=== PATIENT | male | born 1980 | race Native Hawaiian/Other Pacific Islander ===

== ENCOUNTER 2021-10-10 10:30 | Emergency (ER) | payer OTHER ==
[~2021-10-10] VITALS: Ht 172.7 cm; Wt 104.3 kg
--- NOTE | 2021-10-10 10:46 | ED General ---
General Stated Complaint: ELEV GLUCOSE Source of Information: Patient Exam Limitations: No Limitations History of Present Illness Date Seen by Provider: Oct 10, 2021 Time Seen by Provider: 10:32 Initial Comments 41-year-old male with past medical history of diabetes and hypertension coming in with custodial personnel from [facility] as he has an elevated blood sugar. He says he was diagnosed with diabetes many years ago, but has been borderline since then and they took him off medications many years ago. He says he was not feeling right so he had the nurse in the gel take his blood sugar and it was in the 500s. They given Levemir last night as well as Metformin but it continues to be elevated so they referred him here. He says he has been urinating a lot but is denying any other significant issues including no chest pain, shortness of breath, abdominal pain, nausea, vomiting, diarrhea, fever, chills, weakness, numbness, or any other concerns. He is unsure of the dose of the Levemir they gave him, he says he has not been on insulin for years. He says the physician is planning to see him in custodial tomorrow. Allergies and Home Medications Allergies Coded Allergies: haloperidol (Verified Allergy, Mild, 10/10/21) Patient Home Medication List Home Medication List Reviewed: Yes Review of Systems Review of Systems Constitutional: No chills, No fever EENTM: No blurred vision Respiratory: No cough Cardiovascular: No chest pain Gastrointestinal: No abdominal pain Genitourinary: frequency Musculoskeletal: no symptoms reported Skin: no symptoms reported Psychiatric/Neurological: No Symptoms Reported Hematologic/Lymphatic: No Symptoms Reported Immunological/Allergic: no symptoms reported All Other Systems Reviewed Negative Unless Noted: Yes Past Mwcnbde-Gdgjne-Gfidpz Hx Patient Social History Tobacco Use?: Yes Substance use?: No Alcohol Use?: Yes Past Medical History Surgeries: Yes (nose surgery) Physical Exam Vital Signs Vital Signs - First Documented 10/10/21 10:35 Temp 36.4 Pulse 85 Resp 18 B/P (MAP) 122/75 (91) O2 Delivery Room Air Capillary Refill : Height, Weight, BMI Height: '" Weight: lbs. oz. kg; BMI Method: General Appearance: No Apparent Distress, WD/WN Eyes: Bilateral Eye Normal Inspection HEENT: PERRL/EOMI, Normal ENT Inspection, Pharynx Normal Neck: Full Range of Motion, Normal Inspection, Non Tender, Supple Respiratory: Chest Non Tender, Lungs Clear, Normal Breath Sounds, No Accessory Muscle Use, No Respiratory Distress Cardiovascular: Regular Rate, Rhythm, No Edema, Normal Peripheral Pulses Gastrointestinal: Normal Bowel Sounds, Non Tender, Soft; No Distended, No Guarding Back: Normal Inspection, No CVA Tenderness, No Vertebral Tenderness Extremity: Normal Capillary Refill, Normal Inspection, Normal Range of Motion, Non Tender, No Calf Tenderness Neurologic/Psychiatric: Alert, No Motor/Sensory Deficits, Normal Mood/Affect Skin: Normal Color, Warm/Dry Lymphatic: No Adenopathy Progress/Results/Core Measures Suspected Sepsis SIRS Temperature: Pulse: Respiratory Rate: Laboratory Tests 10/10/21 10:57: White Blood Count 7.2 Blood Pressure / Mean: Laboratory Tests 10/10/21 10:57: Creatinine 0.86, Platelet Count 305 Results/Orders Lab Results Laboratory Tests Test 10/10/21 10:38 10/10/21 10:54 10/10/21 10:57 10/10/21 11:41 Range/Units Urine Color YELLOW Urine Clarity CLEAR Urine pH 6.0 5-9 Urine Specific [place] 1.010 L 1.016-1.022 Urine Protein NEGATIVE NEGATIVE Urine Glucose (UA) 3+ H NEGATIVE Urine Ketones 2+ H NEGATIVE Urine Nitrite NEGATIVE NEGATIVE Urine Bilirubin NEGATIVE NEGATIVE Urine Urobilinogen 0.2 < = 1.0 MG/DL Urine Leukocyte Esterase NEGATIVE NEGATIVE Urine RBC (Auto) NEGATIVE NEGATIVE Urine RBC RARE /HPF Urine WBC 0-2 /HPF Urine Squamous Epithelial Cells RARE /HPF Urine Crystals NONE /LPF Urine Bacteria NEGATIVE /HPF Urine Casts NONE /LPF Urine Mucus NEGATIVE /LPF Urine Culture Indicated NO Glucometer 452 *H 223 H 70-110 MG/DL White Blood Count 7.2 4.3-11.0 10^3/uL Red Blood Count 5.25 4.30-5.52 10^6/uL Hemoglobin 14.9 13.3-17.7 g/dL Hematocrit 42 40-54 % Mean Corpuscular Volume 81 80-99 fL Mean Corpuscular Hemoglobin 28 25-34 pg Mean Corpuscular Hemoglobin Concent 35 32-36 g/dL Red Cell Distribution Width 12.4 10.0-14.5 % Platelet Count 305 130-400 10^3/uL Mean Platelet Volume 9.8 9.0-12.2 fL Immature Granulocyte % (Auto) 0 % Neutrophils (%) (Auto) 73 42-75 % Lymphocytes (%) (Auto) 18 12-44 % Monocytes (%) (Auto) 8 0-12 % Eosinophils (%) (Auto) 0 0-10 % Basophils (%) (Auto) 0 0-10 % Neutrophils # (Auto) 5.3 1.8-7.8 10^3/uL Lymphocytes # (Auto) 1.3 1.0-4.0 10^3/uL Monocytes # (Auto) 0.5 0.0-1.0 10^3/uL Eosinophils # (Auto) 0.0 0.0-0.3 10^3/uL Basophils # (Auto) 0.0 0.0-0.1 10^3/uL Immature Granulocyte # (Auto) 0.0 0.0-0.1 10^3/uL Blood Gas Puncture Site VENOUS Blood Gas Patient Temperature NA Arterial Blood pH 7.35 L 7.37-7.43 Arterial Blood Partial Pressure CO2 47 H 35-45 MMHG Arterial Blood Partial Pressure O2 39 *L 79-93 MMHG Arterial Blood HCO3 26 23-27 MMOL/L Arterial Blood Total CO2 27.3 21.0-31.0 MMOL/L Arterial Blood Oxygen Saturation 70 L 94-100 % Arterial Blood Base Excess -0.1 -2.5-2.5 MMOL/L Otoniel Test NA Blood Gas Ventilator Setting NO Blood Gas Inspired Oxygen NA Sodium Level 131 L 135-145 MMOL/L Potassium Level 4.0 3.6-5.0 MMOL/L Chloride Level 93 L 98-107 MMOL/L Carbon Dioxide Level 22 21-32 MMOL/L Anion Gap 16 H 5-14 MMOL/L Blood Urea Nitrogen 12 7-18 MG/DL Creatinine 0.86 0.60-1.30 MG/DL Estimat Glomerular Filtration Rate 110 BUN/Creatinine Ratio 14 Glucose Level 444 *H 70-105 MG/DL Calcium Level 9.5 8.5-10.1 MG/DL My Orders Orders - NIRU DE LA ROSA MD Arterial Blood Gas (10/10/21 10:35) Basic Metabolic Panel (10/10/21 10:35) Cbc With Automated Diff (10/10/21 10:35) Ua Culture If Indicated (10/10/21 10:35) Accucheck Stat ONCE (10/10/21 10:35) Lactated Ringers (Lr 1000 Ml Iv Solution (10/10/21 11:00) Insulin (Regular) Human (Novolin R (Per (10/10/21 11:00) Medications Given in ED Current Medications Medications Dose Ordered Sig/Isreal Route Start Time Stop Time Status Last Admin Dose Admin Insulin Human Regular 10 unit ONCE ONCE IV 10/10/21 11:00 10/10/21 11:01 DC 10/10/21 11:09 10 UNIT Vital Signs/I&O 10/10/21 10:35 Temp 36.4 Pulse 85 Resp 18 B/P (MAP) 122/75 (91) O2 Delivery Room Air Capillary Refill : Progress Note : Progress Note 41-year-old male with above history coming in due to elevated glucose. ABCs were intact and vitals were stable on presentation. Physical exam reassuring with no focal abnormalities. Glucose here in the 400s. An IV was placed and he was given a bolus of IV fluids as well as 10 units of regular insulin. Anion gap is 16 and he does have some ketones in his urine, but pH is essentially normal so he likely is heather-DKA but not really in full DKA at this point. Repeat glucose in the 200s. He did get long-acting insulin last night which is reassuring. Vitals have remained stable. I believe he is stable for discharge with follow-up with the custodial doctor tomorrow, especially given he will have frequent reassessments with blood sugar checks by the nurse in custodial today. He was sent there with strict return precautions. Departure Impression Primary Impression: Hyperglycemia Disposition: 21 DIS/[address]/[place] Condition: Stable Departure-Patient Inst. Decision time for Depature: 11:43 Referrals: NO,LOCAL PHYSICIAN (PCP) Primary Care Physician Patient Instructions: High Blood Sugar, Adult ED Add. Discharge Instructions: You were sent to the emergency department because your glucose was high. Your other labs looked good. When you got here your glucose was in the 400s. We gave you IV fluids and 10 units of regular insulin bolus. Your glucose went down to the 200s which is an improvement. I recommend you eat a high protein source and something with low amount of carbs to keep your glucose and control especially while in custodial. I would have the custodial nurse check your sugar a couple more times today to be sure it is trending in the right direction. Follow-up with [facility] as an outpatient to get restarted on diabetes medications. NIRU DE LA ROSA MD Oct 10, 2021 10:46
[2021-10-10 10:53] LABS: BILIRUBIN,URINE NEGATIVE (NEGATIVE); CLARITY,URINE CLEAR; COLOR,URINE YELLOW; GLUCOSE, URINE (UA) 3+ (NEGATIVE); KETONES,URINE 2+ (NEGATIVE); LEUKOCYTE ESTERASE ,URINE NEGATIVE (NEGATIVE); NITRITE,URINE NEGATIVE (NEGATIVE); PROTEIN,URINE NEGATIVE (NEGATIVE)
[2021-10-10] MEDS ORDERED: LACTATED RINGERS 1,000 ML IV SCH (11:00)
[2021-10-10] MEDS ORDERED: inSUlin (REGULAR) HUMAN 1 UNIT/0.01 ML (CHARGE PER UNIT) IV ONE (11:00)
[2021-10-10 11:02] LABS: BASOPHILS % (AUTO) 0 % (0-10); EOSINOPHILS % (AUTO) 0 % (0-10); HEMATOCRIT 42 % (40-54); HEMOGLOBIN 14.9 g/dL (13.3-17.7); LYMPHOCYTES # (AUTO) 1.3 10^3/uL (1.0-4.0); LYMPHOCYTES % (AUTO) 18 % (12-44); MEAN CORPUSCULAR HEMOGLOBIN 28 pg (25-34); MEAN CORPUSCULAR HGB CONC 35 g/dL (32-36); MEAN CORPUSCULAR VOLUME 81 fL (80-99); MEAN PLATELET VOLUME 9.8 fL (9.0-12.2); MONOCYTES # (AUTO) 0.5 10^3/uL (0.0-1.0); MONOCYTES % (AUTO) 8 % (0-12); NEUTROPHILS # (AUTO) 5.3 10^3/uL (1.8-7.8); NEUTROPHILS % (AUTO) 73 % (42-75); PLATELET COUNT 305 10^3/uL (130-400); WHITE BLOOD COUNT 7.2 10^3/uL (4.3-11.0)
[2021-10-10 11:08] LABS: BACTERIA,URINE NEGATIVE /HPF; RBC,URINE RARE /HPF; SQUAMOUS EPITHELIAL CELL,UR RARE /HPF; WBC,URINE 0-2 /HPF
[2021-10-10 11:10] LABS: ABG BASE EXCESS -0.1 MMOL/L (-2.5-2.5); ABG PCO2 47 MMHG (35-45); ABG PH 7.35 (7.37-7.43); ABG PO2 39 MMHG (79-93); ABG TCO2 27.3 MMOL/L (21.0-31.0)
[2021-10-10 11:11] LABS: ABG OXYGEN SATURATION 70 % (94-100); VENTILATOR NO
[2021-10-10 11:34] LABS: CALCIUM 9.5 MG/DL (8.5-10.1); CREATININE SERUM 0.86 MG/DL (0.60-1.30)
[2021-10-10 11:49] VITALS: BP 126/71
== END 2021-10-10 11:49 ==
LOC: ER FS 10:33
DX: E11.65 Type 2 diabetes mellitus with hyperglycemia (principal); Z72.0 Tobacco use; Z79.84 Long term (current) use of oral hypoglycemic drugs
CPT/HCPCS: 36415; 80048; 81000; 82805; 82947; 85025

== ENCOUNTER 2022-11-18 12:01 | Emergency (ER) | payer SELFPAY ==
[~2022-11-18] VITALS: Ht 172 cm; Wt 92.5 kg
[2022-11-18] MEDS ORDERED: NS IV 1000 ML 1,000 ML IV SCH ×3 (12:30→13:45)
[2022-11-18] MEDS ORDERED: inSUlin (REGULAR) HUMAN 1 UNIT/0.01 ML (CHARGE PER UNIT) IV ONE (12:30)
[2022-11-18 12:35] LABS: BILIRUBIN,URINE NEGATIVE (NEGATIVE); CLARITY,URINE CLEAR; COLOR,URINE YELLOW; GLUCOSE, URINE (UA) 2+ (NEGATIVE); KETONES,URINE 3+ (NEGATIVE); LEUKOCYTE ESTERASE ,URINE NEGATIVE (NEGATIVE); NITRITE,URINE NEGATIVE (NEGATIVE); PH,URINE 5.5 (5-9); PROTEIN,URINE 1+ (NEGATIVE)
[2022-11-18 12:35] LABS: BASOPHILS % (AUTO) 0 % (0-10); EOSINOPHILS % (AUTO) 0 % (0-10); HEMATOCRIT 50 % (40-54); HEMOGLOBIN 17.5 g/dL (13.3-17.7); LYMPHOCYTES # (AUTO) 2.3 10^3/uL (1.0-4.0); LYMPHOCYTES % (AUTO) 21 % (12-44); MEAN CORPUSCULAR HEMOGLOBIN 28 pg (25-34); MEAN CORPUSCULAR HGB CONC 35 g/dL (32-36); MEAN CORPUSCULAR VOLUME 82 fL (80-99); MEAN PLATELET VOLUME 9.2 fL (9.0-12.2); MONOCYTES # (AUTO) 0.6 10^3/uL (0.0-1.0); MONOCYTES % (AUTO) 6 % (0-12); NEUTROPHILS # (AUTO) 7.9 10^3/uL (1.8-7.8); NEUTROPHILS % (AUTO) 72 % (42-75); PLATELET COUNT 400 10^3/uL (130-400); WHITE BLOOD COUNT 10.9 10^3/uL (4.3-11.0)
[2022-11-18 12:37] LABS: BACTERIA,URINE TRACE /HPF; WBC,URINE 0-2 /HPF
[2022-11-18 12:46] LABS: AMPHETAMINE SCREEN, URINE NEGATIVE (NEGATIVE); BARBITURATE SCREEN URINE NEGATIVE (NEGATIVE); BENZODIAZEPINES SCREEN URINE NEGATIVE (NEGATIVE); CANNABINOID SCREEN, URINE NEGATIVE (NEGATIVE); COCAINE SCREEN URINE POSITIVE (NEGATIVE); METHADONE STAT NEGATIVE (NEGATIVE); OPIATE SCREEN URINE NEGATIVE (NEGATIVE); OXYCODONE STAT NEGATIVE (NEGATIVE); PROPOXYPHENE STAT NEGATIVE (NEGATIVE); TRICYCLIC ANTIDEPRESSANTS SCRE NEGATIVE (NEGATIVE)
[2022-11-18 12:52] LABS: ALANINE AMINOTRANSFERASE 12 U/L (0-55); ALBUMIN 4.8 GM/DL (3.2-4.5); ALKALINE PHOSPHATASE 133 U/L (40-136); BILIRUBIN,TOTAL 0.9 MG/DL (0.1-1.0); BUN/CREATININE RATIO 14; CALCIUM 10.3 MG/DL (8.5-10.1); CARBON DIOXIDE 23 MMOL/L (21-32); CHLORIDE 95 MMOL/L (98-107); CREATININE SERUM 0.99 MG/DL (0.60-1.30); GFR ESTIMATED 96; GLUCOSE 386 MG/DL (70-105); LIPASE 28 U/L (8-78); POTASSIUM 4.3 MMOL/L (3.6-5.0); SODIUM 136 MMOL/L (135-145); TOTAL PROTEIN 8.4 GM/DL (6.4-8.2)
--- NOTE | 2022-11-18 12:56 | ED General ---
General Chief Complaint: General Problems/Pain Stated Complaint: BLOOD SUGAR Nursing Triage Note: Patient ambulatory to room 6 with complaints of dry mouth, a lot of urinating, weakness and nausea. Patient states he threw up 1x 5 days ago. Symptoms started 5 days ago. Patient was seen at Walk In today who then sent him here. Source of Information: Patient, Family History of Present Illness Date Seen by Provider: Nov 18, 2022 Time Seen by Provider: 12:17 Initial Comments 42-year-old male patient with type 2 diabetes mellitus, PTSD, bipolar and schizophrenia sent from walk-in clinic because of elevation of blood sugar. Patient states for the last 5 days he does not feel good and feels dehydrated and having elevation of blood sugar and feeling thirsty and increasing urination. Patient states he had 1 episode of vomiting 5 days ago and had constipation but today had several episodes of firmed stool. Patient states he did not missed his metformin 1000 mg twice a day but does not check his blood sugar. Patient denies headache, myalgia, chest pain, shortness of breath, fever and chills, drinking alcohol or using drugs. Allergies and Home Medications Allergies Coded Allergies: haloperidol (Verified Allergy, Mild, 10/10/21) Patient Home Medication List Home Medication List Reviewed: Yes Review of Systems Review of Systems Constitutional: see HPI EENTM: see HPI; No blurred vision, No double vision, No throat pain Respiratory: see HPI; No short of breath, No stridor Cardiovascular: no symptoms reported; No edema, No palpitations, No syncope Gastrointestinal: see HPI; No diarrhea, No nausea Genitourinary: see HPI; No hematuria, No pain Musculoskeletal: no symptoms reported Skin: no symptoms reported Psychiatric/Neurological: See HPI; Denies Paresthesia, Denies Seizure, Denies Tingling Hematologic/Lymphatic: See HPI; Denies Anemia, Denies Blood Clots, Denies Other Immunological/Allergic: denies see HPI, denies transplant Past Axmwzxp-Zilkee-Bzxove Hx Past Medical History Surgeries: Yes (nose surgery) Physical Exam Vital Signs Vital Signs - First Documented 11/18/22 12:05 Temp 36.1 Pulse 87 Resp 18 B/P (MAP) 151/88 (109) Pulse Ox 98 O2 Delivery Room Air Capillary Refill : Less Than 3 Seconds Height, Weight, BMI Height: '" Weight: lbs. oz. kg; 31.00 BMI Method: General Appearance: Anxious, Mild Distress, Obese Eyes: Bilateral Eye Normal Inspection, Bilateral Eye PERRL HEENT: PERRL/EOMI, TMs Normal, Normal ENT Inspection, Pharynx Normal, Other (Dry oral mucosa) Neck: Full Range of Motion, Normal Inspection, Non Tender, Supple, Carotid Bruit Respiratory: Chest Non Tender, Lungs Clear, Normal Breath Sounds, No Accessory Muscle Use, No Respiratory Distress Cardiovascular: Regular Rate, Rhythm, No Edema, No Gallop, No JVD, No Murmur, Normal Peripheral Pulses Gastrointestinal: Normal Bowel Sounds, No Organomegaly, No Pulsatile Mass, Non Tender, Soft Back: Normal Inspection, No CVA Tenderness, No Vertebral Tenderness Extremity: Normal Capillary Refill, Normal Inspection, Normal Range of Motion, Non Tender, No Calf Tenderness, No Pedal Edema Neurologic/Psychiatric: Alert, Oriented x3, No Motor/Sensory Deficits, Normal Mood/Affect Skin: Normal Color Lymphatic: No Adenopathy Progress/Results/Core Measures Suspected Sepsis SIRS Temperature: Pulse: 87 Respiratory Rate: 18 Laboratory Tests 11/18/22 12:26: White Blood Count 10.9 Blood Pressure 151 /88 Mean: 109 Laboratory Tests 11/18/22 12:26: Creatinine 0.99, Platelet Count 400, Total Bilirubin 0.9 Results/Orders Lab Results Laboratory Tests Test 11/18/22 12:09 11/18/22 12:22 11/18/22 12:26 11/18/22 13:10 Range/Units Glucometer 374 H 70-110 MG/DL Urine Color YELLOW Urine Clarity CLEAR Urine pH 5.5 5-9 Urine Specific [place] >=1.030 1.016-1.022 Urine Protein 1+ H NEGATIVE Urine Glucose (UA) 2+ H NEGATIVE Urine Ketones 3+ H NEGATIVE Urine Nitrite NEGATIVE NEGATIVE Urine Bilirubin NEGATIVE NEGATIVE Urine Urobilinogen 0.2 < = 1.0 MG/DL Urine Leukocyte Esterase NEGATIVE NEGATIVE Urine RBC (Auto) NEGATIVE NEGATIVE Urine RBC NONE /HPF Urine WBC 0-2 /HPF Urine Squamous Epithelial Cells NONE /HPF Urine Crystals NONE /LPF Urine Bacteria TRACE /HPF Urine Casts PRESENT /LPF Urine Hyaline Casts 5-10 H /LPF Urine Granular Casts 2-5 H /LPF Urine Coarse Granular Casts RARE H /LPF Urine Mucus LARGE H /LPF Urine Culture Indicated NO Urine Opiates Screen NEGATIVE NEGATIVE Urine Oxycodone Screen NEGATIVE NEGATIVE Urine Methadone Screen NEGATIVE NEGATIVE Urine Propoxyphene Screen NEGATIVE NEGATIVE Urine Barbiturates Screen NEGATIVE NEGATIVE Ur Tricyclic Antidepressants Screen NEGATIVE NEGATIVE Urine Phencyclidine Screen NEGATIVE NEGATIVE Urine Amphetamines Screen NEGATIVE NEGATIVE Urine Methamphetamines Screen NEGATIVE NEGATIVE Urine Benzodiazepines Screen NEGATIVE NEGATIVE Urine Cocaine Screen POSITIVE H NEGATIVE Urine Cannabinoids Screen NEGATIVE NEGATIVE White Blood Count 10.9 4.3-11.0 10^3/uL Red Blood Count 6.16 H 4.30-5.52 10^6/uL Hemoglobin 17.5 13.3-17.7 g/dL Hematocrit 50 40-54 % Mean Corpuscular Volume 82 80-99 fL Mean Corpuscular Hemoglobin 28 25-34 pg Mean Corpuscular Hemoglobin Concent 35 32-36 g/dL Red Cell Distribution Width 12.1 10.0-14.5 % Platelet Count 400 130-400 10^3/uL Mean Platelet Volume 9.2 9.0-12.2 fL Immature Granulocyte % (Auto) 0 % Neutrophils (%) (Auto) 72 42-75 % Lymphocytes (%) (Auto) 21 12-44 % Monocytes (%) (Auto) 6 0-12 % Eosinophils (%) (Auto) 0 0-10 % Basophils (%) (Auto) 0 0-10 % Neutrophils # (Auto) 7.9 H 1.8-7.8 10^3/uL Lymphocytes # (Auto) 2.3 1.0-4.0 10^3/uL Monocytes # (Auto) 0.6 0.0-1.0 10^3/uL Eosinophils # (Auto) 0.0 0.0-0.3 10^3/uL Basophils # (Auto) 0.0 0.0-0.1 10^3/uL Immature Granulocyte # (Auto) 0.0 0.0-0.1 10^3/uL Sodium Level 136 135-145 MMOL/L Potassium Level 4.3 3.6-5.0 MMOL/L Chloride Level 95 L 98-107 MMOL/L Carbon Dioxide Level 23 21-32 MMOL/L Anion Gap 18 H 5-14 MMOL/L Blood Urea Nitrogen 14 7-18 MG/DL Creatinine 0.99 0.60-1.30 MG/DL Estimat Glomerular Filtration Rate 96 BUN/Creatinine Ratio 14 Glucose Level 386 H 70-105 MG/DL Calcium Level 10.3 H 8.5-10.1 MG/DL Corrected Calcium 8.5-10.1 MG/DL Total Bilirubin 0.9 0.1-1.0 MG/DL Aspartate Amino Transf (AST/SGOT) 6 5-34 U/L Alanine Aminotransferase (ALT/SGPT) 12 0-55 U/L Alkaline Phosphatase 133 40-136 U/L Total Protein 8.4 H 6.4-8.2 GM/DL Albumin 4.8 H 3.2-4.5 GM/DL Lipase 28 8-78 U/L Blood Gas Puncture Site LEFT RAD Blood Gas Patient Temperature 36.1 Arterial Blood pH 7.30 *L 7.37-7.43 Arterial Blood Partial Pressure CO2 55 H 35-45 MMHG Arterial Blood Partial Pressure O2 19 *L 79-93 MMHG Arterial Blood HCO3 27 23-27 MMOL/L Arterial Blood Total CO2 28.8 21.0-31.0 MMOL/L Arterial Blood Oxygen Saturation 24 L 94-100 % Arterial Blood Base Excess -0.2 -2.5-2.5 MMOL/L Otoniel Test N/A Blood Gas Ventilator Setting NO Blood Gas Inspired Oxygen N/A Test 11/18/22 13:13 Range/Units Glucometer 295 H 70-110 MG/DL My Orders Orders - SHREYA FIORE MD Comprehensive Metabolic Panel (11/18/22 12:28) Lipase (11/18/22 12:28) Ua Culture If Indicated (11/18/22 12:28) Ed Iv/Invasive Line Start (11/18/22 12:28) Cbc With Automated Diff (11/18/22 12:28) Drug Screen Stat (Urine) (11/18/22 12:28) Ns Iv 1000 Ml (Sodium Chloride 0.9%) (11/18/22 12:30) Insulin (Regular) Human (Novolin R (Per (11/18/22 12:30) Arterial Blood Gas (11/18/22 12:58) Arterial Blood Gas (11/18/22 13:15) Ns Iv 1000 Ml (Sodium Chloride 0.9%) (11/18/22 13:30) Medications Given in ED Current Medications Medications Dose Ordered Sig/Isreal Route Start Time Stop Time Status Last Admin Dose Admin Insulin Human Regular 10 unit ONCE ONCE IV 11/18/22 12:30 11/18/22 12:32 DC 11/18/22 12:39 10 UNIT Vital Signs/I&O 11/18/22 12:05 Temp 36.1 Pulse 87 Resp 18 B/P (MAP) 151/88 (109) Pulse Ox 98 O2 Delivery Room Air Capillary Refill : Less Than 3 Seconds Blood Pressure Mean: 109 Point of Care Testing Finger Stick Blood Glucose: 374 Progress Note : Progress Note 42-year-old patient with history of diabetes mellitus and complaining of dehydration and 1 episode of vomiting 5 days ago. Patient had blood sugar of 374 and at arrival to ER after seeing at walk-in clinic. Patient did not have tachycardia or hypotension or nausea and vomiting and treated with 2000 mL of normal saline and 10 units of IV regular insulin with improvement of his condition. Patient tolerated oral intake. Labs showed normal white count and elevation of hemoglobin because of dehydration. Patient had normal sodium and potassium with chloride of 95 and calcium of 10.5 that is most likely related to dehydration. Bicarb was 23. UA showed 3+ ketones and 2+ glucose without infe ction. UDS was positive for cocaine. ABG was performed and did not show low bicarb or CO2, PO2 was very low at that did not match with the clinical finding and O2 sat of 95% at room air. Blood sugar gradually decreased to 257 at the time of discharge. patient later on stated he did not take his metformin this morning and advised to take his metformin. Patient advised to follow-up with primary care physician for providing glucometer machine and strips. Patient advised not using illegal drugs and increase fluid intake and follow-up with diabetic diet. Patient informed about mild elevation of calcium, most likely related to dehydration, but needs to follow-up with primary care physician for repeat the calcium. Departure Impression Primary Impression: Uncontrolled diabetes mellitus with hyperglycemia Qualified Codes: E11.65 - Type 2 diabetes mellitus with hyperglycemia Additional Impressions: Dehydration Hypercalcemia Cocaine abuse Disposition: HOME, SELF-CARE Condition: Improved (ERASED) Departure-Patient Inst. Decision time for Depature: 14:19 Referrals: NO,LOCAL PHYSICIAN (PCP) Primary Care Physician Patient Instructions: Carb Counting for Adults With Diabetes, Dehydration, Adult ED, Diabetes and Diet, The ABCs of Diabetes Add. Discharge Instructions: Drink plenty of liquids Take home medication, do not miss your metformin Follow-up with your primary care physician in 2 or 3 days Return to ER as needed All discharge instructions reviewed with patient and/or family. Voiced understanding. Scripts Ondansetron (Ondansetron Odt) 4 Mg Tab.rapdis 4 MG PO TID PRN for NAUSEA-1ST LINE, #10 TAB Prov: SHREYA FIORE MD 11/18/22 SHREYA FIORE MD Nov 18, 2022 12:56
[2022-11-18 13:16] LABS: PATIENT TEMP 36.1; VENTILATOR NO
[2022-11-18 13:20] LABS: ABG BASE EXCESS -0.2 MMOL/L (-2.5-2.5); ABG OXYGEN SATURATION 24 % (94-100); ABG PCO2 55 MMHG (35-45); ABG TCO2 28.8 MMOL/L (21.0-31.0)
[2022-11-18 13:22] LABS: ABG PO2 19 MMHG (79-93)
[2022-11-18] MEDS ORDERED: ONDA4TAB11 PO (14:08)
[2022-11-18 14:40] VITALS: BP 138/76
== END 2022-11-18 14:40 | disposition home or self-care (01) ==
LOC: EDUNIT# 12:01 → ER FS 12:05 → ER 14:40
DX: E11.65 Type 2 diabetes mellitus with hyperglycemia (principal); E86.0 Dehydration; E83.52 Hypercalcemia; F14.10 Cocaine abuse, uncomplicated; R11.2 Nausea with vomiting, unspecified
CPT/HCPCS: 36415; 80053; 80306; 81000; 82805; 82947; 83690; 85025

== ENCOUNTER 2022-12-05 21:19 | Emergency (ER) | payer SELFPAY ==
[~2022-12-05 21:19] MED LIST: ONDA4TAB11 PO
--- NOTE | 2022-12-05 21:26 | ED General ---
General Stated Complaint: BLOOD SUGAR HIGH Source of Information: Patient History of Present Illness Date Seen by Provider: December 05, 2022 Time Seen by Provider: 21:24 Initial Comments 42-year-old male presenting with complaints of elevated blood sugar. He ran out of his metformin medications last week and was just seen on Sunday for getting started back on his medications. He reports that they restarted the metformin but they also started a new medicine for his diabetes. He does not remember the name of the medication. He had checked his sugar today and it was over 400. He was concerned because it was so high. He denies having nausea, vomiting, change in vision, chest pain, headache. He feels like he is having some numbness or tingling in his hands and feet. Timing/Duration: 4-5 Days Severity: Moderate Associated Systoms: No Chest Pain, No Cough, No Diaphoresis, No Fever/Chills, No Headaches, No Loss of Appetite, No Malaise, No Nausea/Vomiting, No Rash, No Seizure, No Shortness of Air, No Syncope, No Weakness Allergies and Home Medications Allergies Coded Allergies: haloperidol (Verified Allergy, Mild, 10/10/21) Patient Home Medication List Home Medication List Reviewed: Yes Ondansetron (Ondansetron Odt) 4 Mg Tab.rapdis, 4 MG PO TID PRN for NAUSEA-1ST LINE Prescribed by: Joanne gibson on 11/18/22 1408 Review of Systems Review of Systems Constitutional: No chills, No fever EENTM: no symptoms reported Respiratory: no symptoms reported Cardiovascular: no symptoms reported Gastrointestinal: no symptoms reported Genitourinary: no symptoms reported Musculoskeletal: no symptoms reported Skin: no symptoms reported Psychiatric/Neurological: No Symptoms Reported Hematologic/Lymphatic: No Symptoms Reported Past Utpbbty-Iufvjy-Aeifrh Hx Immunizations Up To Date First/Initial COVID19 Vaccinat: unknown Past Medical History Surgery/Hospitalization HX: Diabetes mellitus type 2 Surgeries: Yes (nose surgery) Physical Exam Vital Signs Vital Signs - First Documented 12/05/22 21:25 Temp 36.6 Pulse 73 Resp 18 B/P (MAP) 135/81 (99) Pulse Ox 97 O2 Delivery Room Air Capillary Refill : Height, Weight, BMI Height: '" Weight: lbs. oz. kg; 31.00 BMI Method: General Appearance: No Apparent Distress, WD/WN HEENT: PERRL/EOMI, Pharynx Normal Neck: Full Range of Motion, Normal Inspection, Non Tender, Supple Respiratory: Chest Non Tender, Lungs Clear, Normal Breath Sounds, No Accessory Muscle Use, No Respiratory Distress Cardiovascular: Regular Rate, Rhythm, Normal Peripheral Pulses Gastrointestinal: Normal Bowel Sounds, No Pulsatile Mass, Non Tender, Soft Extremity: Normal Capillary Refill, Normal Inspection, No Pedal Edema Neurologic/Psychiatric: Alert, Oriented x3, academic affairs vice president II-XII Norm as Tested Skin: Normal Color, Warm/Dry Progress/Results/Core Measures Suspected Sepsis SIRS Temperature: Pulse: Respiratory Rate: Laboratory Tests 12/05/22 21:30: White Blood Count 7.5 Blood Pressure / Mean: Laboratory Tests 12/05/22 21:30: Creatinine 0.83, Platelet Count 348, Total Bilirubin 0.3 Results/Orders Lab Results Laboratory Tests Test 12/05/22 21:25 12/05/22 21:28 12/05/22 21:30 12/05/22 22:30 Range/Units Urine Color YELLOW Urine Clarity CLEAR Urine pH 6.0 5-9 Urine Specific [place] 1.010 L 1.016-1.022 Urine Protein NEGATIVE NEGATIVE Urine Glucose (UA) 3+ H NEGATIVE Urine Ketones 3+ H NEGATIVE Urine Nitrite NEGATIVE NEGATIVE Urine Bilirubin NEGATIVE NEGATIVE Urine Urobilinogen 0.2 < = 1.0 MG/DL Urine Leukocyte Esterase NEGATIVE NEGATIVE Urine RBC (Auto) 1+ H NEGATIVE Urine RBC 2-5 H /HPF Urine WBC RARE /HPF Urine Squamous Epithelial Cells NONE /HPF Urine Crystals NONE /LPF Urine Bacteria NEGATIVE /HPF Urine Casts NONE /LPF Urine Mucus NEGATIVE /LPF Urine Culture Indicated NO Urine Opiates Screen NEGATIVE NEGATIVE Urine Oxycodone Screen NEGATIVE NEGATIVE Urine Methadone Screen NEGATIVE NEGATIVE Urine Propoxyphene Screen NEGATIVE NEGATIVE Urine Barbiturates Screen NEGATIVE NEGATIVE Ur Tricyclic Antidepressants Screen NEGATIVE NEGATIVE Urine Phencyclidine Screen NEGATIVE NEGATIVE Urine Amphetamines Screen NEGATIVE NEGATIVE Urine Methamphetamines Screen NEGATIVE NEGATIVE Urine Benzodiazepines Screen NEGATIVE NEGATIVE Urine Cocaine Screen NEGATIVE NEGATIVE Urine Cannabinoids Screen NEGATIVE NEGATIVE Glucometer 407 *H 222 H 70-110 MG/DL White Blood Count 7.5 4.3-11.0 10^3/uL Red Blood Count 5.18 4.30-5.52 10^6/uL Hemoglobin 14.7 13.3-17.7 g/dL Hematocrit 43 40-54 % Mean Corpuscular Volume 83 80-99 fL Mean Corpuscular Hemoglobin 28 25-34 pg Mean Corpuscular Hemoglobin Concent 34 32-36 g/dL Red Cell Distribution Width 12.3 10.0-14.5 % Platelet Count 348 130-400 10^3/uL Mean Platelet Volume 9.8 9.0-12.2 fL Immature Granulocyte % (Auto) 0 % Neutrophils (%) (Auto) 60 42-75 % Lymphocytes (%) (Auto) 33 12-44 % Monocytes (%) (Auto) 6 0-12 % Eosinophils (%) (Auto) 1 0-10 % Basophils (%) (Auto) 0 0-10 % Neutrophils # (Auto) 4.5 1.8-7.8 10^3/uL Lymphocytes # (Auto) 2.5 1.0-4.0 10^3/uL Monocytes # (Auto) 0.5 0.0-1.0 10^3/uL Eosinophils # (Auto) 0.1 0.0-0.3 10^3/uL Basophils # (Auto) 0.0 0.0-0.1 10^3/uL Immature Granulocyte # (Auto) 0.0 0.0-0.1 10^3/uL Venous Blood pH 7.38 7.31-7.41 Venous Blood Partial Pressure CO2 40 40-52 MMHG Venous Blood HCO3 24 22-28 MMOL/L Sodium Level 130 L 135-145 MMOL/L Potassium Level 4.5 3.6-5.0 MMOL/L Chloride Level 96 L 98-107 MMOL/L Carbon Dioxide Level 20 L 21-32 MMOL/L Anion Gap 14 5-14 MMOL/L Blood Urea Nitrogen 15 7-18 MG/DL Creatinine 0.83 0.60-1.30 MG/DL Estimat Glomerular Filtration Rate 111 BUN/Creatinine Ratio 18 Glucose Level 476 *H 70-105 MG/DL Calcium Level 9.4 8.5-10.1 MG/DL Corrected Calcium 9.4 8.5-10.1 MG/DL Total Bilirubin 0.3 0.1-1.0 MG/DL Aspartate Amino Transf (AST/SGOT) 11 5-34 U/L Alanine Aminotransferase (ALT/SGPT) 10 0-55 U/L Alkaline Phosphatase 135 40-136 U/L Total Protein 7.0 6.4-8.2 GM/DL Albumin 4.0 3.2-4.5 GM/DL Lipase 56 8-78 U/L Serum Alcohol < 10 <10 MG/DL Test 12/05/22 23:16 Range/Units Glucometer 195 H 70-110 MG/DL My Orders Orders - ARETHA COTTON MD Comprehensive Metabolic Panel (12/05/22 21:24) Lipase (12/05/22 21:24) Ua Culture If Indicated (12/05/22 21:24) Ed Iv/Invasive Line Start (12/05/22 21:24) Cbc With Automated Diff (12/05/22 21:24) Accucheck Stat ONCE (12/05/22 21:24) Drug Screen Stat (Urine) (12/05/22 21:24) Venous Blood Gas (12/05/22 21:24) Alcohol (12/05/22 21:24) Ns Iv 1000 Ml (Sodium Chloride 0.9%) (12/05/22 21:39) Insulin (Regular) Human (Novolin R (Per (12/05/22 21:39) Ns Iv 1000 Ml (Sodium Chloride 0.9%) (12/05/22 22:18) Accucheck Stat ONCE (12/05/22 22:18) Vital Signs/I&O 12/05/22 12/05/22 21:25 23:18 Temp 36.6 36.6 Pulse 73 70 Resp 18 18 B/P (MAP) 135/81 (99) 119/74 Pulse Ox 97 99 O2 Delivery Room Air Room Air 12/05/22 23:59 Intake Total 2000 ml Balance 2000 ml Capillary Refill : Progress Note #1: Progress Note Potential DKA, hyperglycemia with diabetes, electrolyte imbalance, urinary tract infection, pneumonia. As patient was not having symptoms of high blood sugar will obtain basic labs and Accu-Chek. See what his complete blood profile, comprehensive metabolic panel, lipase, venous blood gas shows. Ordered urinalysis along with urine drug screen to look for other sources for him to have elevated blood sugar. Also obtain alcohol level. Give normal saline 1 L IV fluid bolus for hydration, regular insulin 10 units IV for hyperglycemia. His initial Accu-Chek was 407. Progress Note #2: Progress Note Labs do not show any acute significant abnormality on his complete blood count. His comprehensive metabolic profile that showed elevated glucose to 476. Patient continues to feel well without any acute complaints. Glucose came down to 222 on recheck. As he did have ketones in his urine we will administer 1 additional liter of normal saline prior to discharge to home. Stressed importance of following diabetic diet. Encourage follow-up with the clinic. Venous blood gas does not show any acute acidosis. Administer an additional liter of normal saline for concentrated urine. Progress Note #3: Progress Note After his second bag of IV fluids finished infusing a repeat Accu-Chek was obtained and showed 195. Continue with discharge to home. Encourage patient to work with the clinic on controlling his diabetes better. Departure Impression Primary Impression: Uncontrolled diabetes mellitus with hyperglycemia Qualified Codes: E11.65 - Type 2 diabetes mellitus with hyperglycemia Disposition: HOME, SELF-CARE Condition: Improved Departure-Patient Inst. Decision time for Depature: 23:09 Referrals: NO,LOCAL PHYSICIAN (PCP) Primary Care Physician [facility] Patient Instructions: High Blood Sugar, Adult ED, How to Prevent High Blood Sugar Emergencies in Diabetes, Diabetes and Diet Add. Discharge Instructions: Try to stay well-hydrated and drink plenty of fluids. Follow-up with diabetic diet and avoid foods that are high in carbohydrates and sugar. Continue on the medications that they restarted for you yesterday ARETHA COTTON MD December 05, 2022 21:26
[2022-12-05 21:37] LABS: BASOPHILS % (AUTO) 0 % (0-10); EOSINOPHILS # (AUTO) 0.1 10^3/uL (0.0-0.3); EOSINOPHILS % (AUTO) 1 % (0-10); HEMATOCRIT 43 % (40-54); HEMOGLOBIN 14.7 g/dL (13.3-17.7); LYMPHOCYTES # (AUTO) 2.5 10^3/uL (1.0-4.0); LYMPHOCYTES % (AUTO) 33 % (12-44); MEAN CORPUSCULAR HEMOGLOBIN 28 pg (25-34); MEAN CORPUSCULAR HGB CONC 34 g/dL (32-36); MEAN CORPUSCULAR VOLUME 83 fL (80-99); MEAN PLATELET VOLUME 9.8 fL (9.0-12.2); MONOCYTES # (AUTO) 0.5 10^3/uL (0.0-1.0); MONOCYTES % (AUTO) 6 % (0-12); NEUTROPHILS # (AUTO) 4.5 10^3/uL (1.8-7.8); NEUTROPHILS % (AUTO) 60 % (42-75); PLATELET COUNT 348 10^3/uL (130-400); WHITE BLOOD COUNT 7.5 10^3/uL (4.3-11.0)
[2022-12-05] MEDS ORDERED: inSUlin (REGULAR) HUMAN 1 UNIT/0.01 ML (CHARGE PER UNIT) IV STA (21:39)
[2022-12-05] MEDS ORDERED: NS IV 1000 ML 1,000 ML IV STA ×2 (21:39→22:18)
[2022-12-05 21:45] LABS: BILIRUBIN,URINE NEGATIVE (NEGATIVE); CLARITY,URINE CLEAR; COLOR,URINE YELLOW; GLUCOSE, URINE (UA) 3+ (NEGATIVE); KETONES,URINE 3+ (NEGATIVE); LEUKOCYTE ESTERASE ,URINE NEGATIVE (NEGATIVE); NITRITE,URINE NEGATIVE (NEGATIVE); PROTEIN,URINE NEGATIVE (NEGATIVE)
[2022-12-05 21:49] LABS: AMPHETAMINE SCREEN, URINE NEGATIVE (NEGATIVE); BARBITURATE SCREEN URINE NEGATIVE (NEGATIVE); BENZODIAZEPINES SCREEN URINE NEGATIVE (NEGATIVE); CANNABINOID SCREEN, URINE NEGATIVE (NEGATIVE); COCAINE SCREEN URINE NEGATIVE (NEGATIVE); METHADONE STAT NEGATIVE (NEGATIVE); OPIATE SCREEN URINE NEGATIVE (NEGATIVE); OXYCODONE STAT NEGATIVE (NEGATIVE); PROPOXYPHENE STAT NEGATIVE (NEGATIVE); TRICYCLIC ANTIDEPRESSANTS SCRE NEGATIVE (NEGATIVE)
[2022-12-05 21:53] LABS: BACTERIA,URINE NEGATIVE /HPF; WBC,URINE RARE /HPF
[2022-12-05 22:14] LABS: BUN/CREATININE RATIO 18; CARBON DIOXIDE 20 MMOL/L (21-32); CHLORIDE 96 MMOL/L (98-107); CREATININE SERUM 0.83 MG/DL (0.60-1.30); GFR ESTIMATED 111; POTASSIUM 4.5 MMOL/L (3.6-5.0); SODIUM 130 MMOL/L (135-145)
[2022-12-05 22:15] LABS: GLUCOSE 476 MG/DL (70-105)
[2022-12-05 22:16] LABS: ALANINE AMINOTRANSFERASE 10 U/L (0-55); ALKALINE PHOSPHATASE 135 U/L (40-136); BILIRUBIN,TOTAL 0.3 MG/DL (0.1-1.0); CALCIUM 9.4 MG/DL (8.5-10.1); LIPASE 56 U/L (8-78)
[2022-12-05 23:18] VITALS: BP 119/74
== END 2022-12-05 23:20 | disposition home or self-care (01) ==
LOC: EDUNIT# 21:19 → ER FS 21:21
DX: E11.65 Type 2 diabetes mellitus with hyperglycemia (principal); Z28.311 Partially vaccinated for COVID-19
CPT/HCPCS: 36415; 80053; 80306; 81000; 82805; 82947; 83690; 85025; 99284; G0480; 80320

== ENCOUNTER 2023-02-03 20:25 | Emergency (ER) | payer SELFPAY ==
[~2023-02-03] VITALS: Ht 167.7 cm; Wt 86.5 kg
[2023-02-03] MEDS ORDERED: NS IV 1000 ML 1,000 ML IV STA ×2 (20:42→21:26)
[2023-02-03] MEDS ORDERED: inSUlin (REGULAR) HUMAN 1 UNIT/0.01 ML (CHARGE PER UNIT) IV STA (20:42)
[2023-02-03] MEDS ORDERED: ONDANSETRON 4 MG/2 ML (SDV) Z0FRAN IVP ONE (20:45)
[2023-02-03 20:47] LABS: BASOPHILS # (AUTO) 0.1 10^3/uL (0.0-0.1); BASOPHILS % (AUTO) 1 % (0-10); EOSINOPHILS # (AUTO) 0.1 10^3/uL (0.0-0.3); EOSINOPHILS % (AUTO) 1 % (0-10); HEMATOCRIT 52 % (40-54); HEMOGLOBIN 17.2 g/dL (13.3-17.7); LYMPHOCYTES # (AUTO) 2.4 10^3/uL (1.0-4.0); LYMPHOCYTES % (AUTO) 28 % (12-44); MEAN CORPUSCULAR HEMOGLOBIN 29 pg (25-34); MEAN CORPUSCULAR HGB CONC 33 g/dL (32-36); MEAN CORPUSCULAR VOLUME 86 fL (80-99); MEAN PLATELET VOLUME 9.9 fL (9.0-12.2); MONOCYTES # (AUTO) 0.5 10^3/uL (0.0-1.0); MONOCYTES % (AUTO) 6 % (0-12); NEUTROPHILS # (AUTO) 5.7 10^3/uL (1.8-7.8); NEUTROPHILS % (AUTO) 65 % (42-75); PLATELET COUNT 342 10^3/uL (130-400); WHITE BLOOD COUNT 8.8 10^3/uL (4.3-11.0)
--- NOTE | 2023-02-03 20:51 | ED General ---
General Chief Complaint: Glucose Problems Stated Complaint: HIGH BLOOD SUGER Source of Information: Patient History of Present Illness Date Seen by Provider: Feb 03, 2023 Time Seen by Provider: 20:29 Initial Comments 42-year-old male presenting with complaints of not feeling well. He states that he is run out of his supplies for checking his sugars and has not gone back to the [facility] clinic to get anymore. He does take metformin for diabetes and took a dose prior to coming to the ED. He states he has had nausea but no vomiting. He denies any fever, chills, chest pain, cough, pain with urination. He has inc reased thirst and increased urination. He reports that his sugars were running over 500 at home. He was fatigued all day and did not want to get up or move around. Timing/Duration: 24 Hours Severity: Moderate Modifying Factors: worse with Eating Associated Systoms: No Chest Pain, No Cough, No Diaphoresis, No Fever/Chills, No Headaches, No Loss of Appetite; Malaise; No Seizure, No Shortness of Air, No Syncope; Weakness Allergies and Home Medications Allergies Coded Allergies: haloperidol (Verified Allergy, Mild, 10/10/21) Patient Home Medication List Home Medication List Reviewed: Yes Ondansetron (Ondansetron Odt) 4 Mg Tab.rapdis, 4 MG PO TID PRN for NAUSEA-1ST LINE Prescribed by: Joanne gibson on 11/18/22 1408 Review of Systems Review of Systems Constitutional: No chills, No fever EENTM: no symptoms reported Respiratory: no symptoms reported Cardiovascular: no symptoms reported Gastrointestinal: see HPI, nausea; No vomiting Genitourinary: see HPI; No dysuria Musculoskeletal: no symptoms reported Skin: no symptoms reported Psychiatric/Neurological: No Symptoms Reported Past Ozwoaed-Ltuvyl-Upjwgf Hx Immunizations Up To Date First/Initial COVID19 Vaccinat: unknown Past Medical History Surgery/Hospitalization HX: Diabetes mellitus type 2 Surgeries: Yes (nose surgery) Physical Exam Vital Signs Vital Signs - First Documented 02/03/23 20:34 Temp 35.6 Pulse 73 Resp 18 B/P (MAP) 138/95 (109) Pulse Ox 98 O2 Delivery Room Air Capillary Refill : Height, Weight, BMI Height: '" Weight: lbs. oz. kg; 31.00 BMI Method: General Appearance: No Apparent Distress, WD/WN HEENT: PERRL/EOMI, Pharynx Normal Neck: Full Range of Motion, Normal Inspection, Non Tender, Supple Respiratory: Chest Non Tender, Lungs Clear, Normal Breath Sounds, No Accessory Muscle Use, No Respiratory Distress Cardiovascular: Regular Rate, Rhythm, Normal Peripheral Pulses Gastrointestinal: Normal Bowel Sounds, No Pulsatile Mass, Non Tender, Soft Rectal: Deferred Extremity: Normal Capillary Refill, Normal Inspection, No Pedal Edema Neurologic/Psychiatric: Alert, Oriented x3 Skin: Normal Color, Warm/Dry Progress/Results/Core Measures Suspected Sepsis SIRS Temperature: Pulse: Respiratory Rate: Laboratory Tests 02/03/23 20:41: White Blood Count 8.8 Blood Pressure / Mean: Laboratory Tests 02/03/23 20:41: Creatinine 0.98, Platelet Count 342, Total Bilirubin 0.5 Results/Orders Lab Results Laboratory Tests Test 02/03/23 20:41 02/03/23 20:57 02/03/23 21:32 02/03/23 22:11 Range/Units White Blood Count 8.8 4.3-11.0 10^3/uL Red Blood Count 6.00 H 4.30-5.52 10^6/uL Hemoglobin 17.2 13.3-17.7 g/dL Hematocrit 52 40-54 % Mean Corpuscular Volume 86 80-99 fL Mean Corpuscular Hemoglobin 29 25-34 pg Mean Corpuscular Hemoglobin Concent 33 32-36 g/dL Red Cell Distribution Width 13.1 10.0-14.5 % Platelet Count 342 130-400 10^3/uL Mean Platelet Volume 9.9 9.0-12.2 fL Immature Granulocyte % (Auto) 0 % Neutrophils (%) (Auto) 65 42-75 % Lymphocytes (%) (Auto) 28 12-44 % Monocytes (%) (Auto) 6 0-12 % Eosinophils (%) (Auto) 1 0-10 % Basophils (%) (Auto) 1 0-10 % Neutrophils # (Auto) 5.7 1.8-7.8 10^3/uL Lymphocytes # (Auto) 2.4 1.0-4.0 10^3/uL Monocytes # (Auto) 0.5 0.0-1.0 10^3/uL Eosinophils # (Auto) 0.1 0.0-0.3 10^3/uL Basophils # (Auto) 0.1 0.0-0.1 10^3/uL Immature Granulocyte # (Auto) 0.0 0.0-0.1 10^3/uL Sodium Level 137 135-145 MMOL/L Potassium Level 3.9 3.6-5.0 MMOL/L Chloride Level 97 L 98-107 MMOL/L Carbon Dioxide Level 21 21-32 MMOL/L Anion Gap 19 H 5-14 MMOL/L Blood Urea Nitrogen 13 7-18 MG/DL Creatinine 0.98 0.60-1.30 MG/DL Estimat Glomerular Filtration Rate 98 BUN/Creatinine Ratio 13 Glucose Level 402 *H 70-105 MG/DL Glucometer 406 *H 304 H 251 H 70-110 MG/DL Calcium Level 10.1 8.5-10.1 MG/DL Corrected Calcium 9.7 8.5-10.1 MG/DL Total Bilirubin 0.5 0.1-1.0 MG/DL Aspartate Amino Transf (AST/SGOT) 8 5-34 U/L Alanine Aminotransferase (ALT/SGPT) < 5 0-55 U/L Alkaline Phosphatase 121 40-136 U/L Total Protein 7.8 6.4-8.2 GM/DL Albumin 4.5 3.2-4.5 GM/DL Lipase 53 8-78 U/L Urine Color YELLOW Urine Clarity CLEAR Urine pH 6.0 5-9 Urine Specific [place] 1.020 1.016-1.022 Urine Protein NEGATIVE NEGATIVE Urine Glucose (UA) 3+ H NEGATIVE Urine Ketones 3+ H NEGATIVE Urine Nitrite NEGATIVE NEGATIVE Urine Bilirubin 1+ H NEGATIVE Urine Urobilinogen 0.2 < = 1.0 MG/DL Urine Leukocyte Esterase NEGATIVE NEGATIVE Urine RBC (Auto) NEGATIVE NEGATIVE Urine RBC NONE /HPF Urine WBC NONE /HPF Urine Crystals NONE /LPF Urine Bacteria TRACE /HPF Urine Casts NONE /LPF Urine Mucus SMALL H /LPF Urine Culture Indicated NO My Orders Orders - ARETHA COTTON MD Comprehensive Metabolic Panel (02/03/23 20:42) Lipase (02/03/23 20:42) Ua Culture If Indicated (02/03/23 20:42) Ed Iv/Invasive Line Start (02/03/23 20:42) Cbc With Automated Diff (02/03/23 20:42) Ns Iv 1000 Ml (Sodium Chloride 0.9%) (02/03/23 20:42) Ondansetron Injection (Zofran Injectio (02/03/23 20:45) Insulin (Regular) Human (Novolin R (Per (02/03/23 20:42) Ns Iv 1000 Ml (Sodium Chloride 0.9%) (02/03/23 21:26) Accucheck Stat ONCE (02/03/23 21:26) Medications Given in ED Current Medications Medications Dose Ordered Sig/Isreal Route Start Time Stop Time Status Last Admin Dose Admin Ondansetron HCl 4 mg ONCE ONCE IVP 02/03/23 20:45 02/03/23 20:46 DC 02/03/23 20:50 4 MG Vital Signs/I&O 02/03/23 02/03/23 20:34 22:36 Temp 35.6 35.7 Pulse 73 60 Resp 18 18 B/P (MAP) 138/95 (109) 107/64 Pulse Ox 98 95 O2 Delivery Room Air Room Air 02/04/23 00:00 Intake Total 2000 ml Balance 2000 ml Capillary Refill : Point of Care Testing Finger Stick Blood Glucose: 406 Blood Glucose Action Taken: Dr notified Progress Note #1: Progress Note Potential diagnosis of noncompliance with medication, noncompliance with treatment, hyperglycemia, poorly controlled diabetes, renal failure, hepatic failure. Obtain peripheral IV access and send labs for complete blood count, comprehensive metabolic profile, urinalysis, Accu-Chek. Administer normal saline 1 L IV fluid bolus for hydration, Zofran 4 mg IV for nausea. Obtain Accu-Chek and Toumeh on his sugar level may also give him regular insulin 10 units IV. 406 blood sugar so we will proceed with the regular insulin 10 units IV in addition to the fluid and Zofran. Progress Note #2: Time: 21:13 Progress Note Complete blood count did not show any acute significant abnormality. He had a normal white blood cell count of 8.8 and hemoglobin of 17.2. His comprehensive metabolic profile showed the elevated glucose of 402 but his sodium was normal at 137, potassium 3.9, BUN 13, creatinine 0.98. He had a normal lipase of 53. On his urinalysis specific gravity was slightly elevated to 1.020 and he had 3+ ketones and glucose. He did not have nitrites, leukocyte esterase or bacteria to indicate an infection. Will recheck his glucose and see how he is improving with treatment so far and will repeat a Liter of Normal Saline for additional hydration. 2129 Repeat accuchek is now down to 304. Will check again after the repeat liter of NS. Patient reports even with the metformin when he is checking his sugars at home he has been running in the 400 to 500 range. Plan discharge to home to have him watch his diet more closely and to check with [facility] on Sunday about getting more test strips and possibly adjusting or adding medicine for his diabetes. Progress Note #3: Time: 22:30 Progress Note After second liter of normal saline his sugars come down to 251. Patient was feeling better and was not having any additional symptoms. Encouraged to monitor his diet better and given handouts about diabetic diet. Also encouraged to check with the [facility] clinic on Sunday about supplies to check his sugars as well as see if they need to adjust or add in medications to get better control of his blood sugar. Departure Impression Primary Impression: Uncontrolled diabetes mellitus with hyperglycemia Qualified Codes: E13.65 - Other specified diabetes mellitus with hyperglycemia Disposition: HOME, SELF-CARE Condition: Improved Departure-Patient Inst. Decision time for Depature: 22:33 Referrals: NO,LOCAL PHYSICIAN (PCP) Primary Care Physician [facility] Patient Instructions: High Blood Sugar, Adult ED, How to Keep Track of Your Blood Sugar, How to Prevent High Blood Sugar Emergencies in Diabetes, Diabetic Meal Planning , Diabetes and diet Add. Discharge Instructions: Try to watch your diet very closely and limit your carbohydrate intake and sugar intake to help keep the sugars from being so elevated. Make sure you are drinking plenty of water and staying well-hydrated in addition to taking the metformin. Call the clinic or go in to be seen on Sunday so that they could get more of your test strips and see if they need to add on add an additional medicine or adjust your metformin to try and get better control of your diabetes. All discharge instructions reviewed with patient and/or family. Voiced understanding. ARETHA COTTON MD Feb 03, 2023 20:51
[2023-02-03 21:01] LABS: ALANINE AMINOTRANSFERASE < 5 U/L (0-55); ALBUMIN 4.5 GM/DL (3.2-4.5); ALKALINE PHOSPHATASE 121 U/L (40-136); BILIRUBIN,TOTAL 0.5 MG/DL (0.1-1.0); BUN/CREATININE RATIO 13; CALCIUM 10.1 MG/DL (8.5-10.1); CARBON DIOXIDE 21 MMOL/L (21-32); CHLORIDE 97 MMOL/L (98-107); CREATININE SERUM 0.98 MG/DL (0.60-1.30); GFR ESTIMATED 98; LIPASE 53 U/L (8-78); POTASSIUM 3.9 MMOL/L (3.6-5.0); SODIUM 137 MMOL/L (135-145); TOTAL PROTEIN 7.8 GM/DL (6.4-8.2)
[2023-02-03 21:01] LABS: CLARITY,URINE CLEAR; COLOR,URINE YELLOW; GLUCOSE, URINE (UA) 3+ (NEGATIVE); KETONES,URINE 3+ (NEGATIVE); LEUKOCYTE ESTERASE ,URINE NEGATIVE (NEGATIVE); NITRITE,URINE NEGATIVE (NEGATIVE); PROTEIN,URINE NEGATIVE (NEGATIVE)
[2023-02-03 21:02] LABS: GLUCOSE 402 MG/DL (70-105)
[2023-02-03 21:05] LABS: BACTERIA,URINE TRACE /HPF; BILIRUBIN,URINE 1+ (NEGATIVE)
[2023-02-03 22:36] VITALS: BP 107/64
== END 2023-02-03 22:36 | disposition home or self-care (01) ==
LOC: EDUNIT# 20:25 → ER FS 20:27
DX: E11.65 Type 2 diabetes mellitus with hyperglycemia (principal)
CPT/HCPCS: 36415; 80053; 81000; 82947; 83690; 85025

== ENCOUNTER 2023-03-11 16:15 | Emergency (ER) | payer SELFPAY ==
[~2023-03-11] VITALS: Ht 172 cm; Wt 100.0 kg
[2023-03-11] MEDS ORDERED: inSUlin (REGULAR) HUMAN 1 UNIT/0.01 ML (CHARGE PER UNIT) IV STA ×2 (16:24→17:13)
[2023-03-11] MEDS ORDERED: NS IV 1000 ML 1,000 ML IV STA ×2 (16:24→17:07)
[2023-03-11] MEDS ORDERED: PANTOPRAZOLE 40 MG (PROTONIX) VIAL IV STA (16:24)
[2023-03-11] MEDS ORDERED: ONDANSETRON 4 MG/2 ML (SDV) Z0FRAN IVP STA (16:24)
[2023-03-11 16:30] LABS: BASOPHILS % (AUTO) 0 % (0-10); EOSINOPHILS % (AUTO) 0 % (0-10); HEMATOCRIT 51 % (40-54); HEMOGLOBIN 17.1 g/dL (13.3-17.7); LYMPHOCYTES # (AUTO) 1.9 10^3/uL (1.0-4.0); LYMPHOCYTES % (AUTO) 27 % (12-44); MEAN CORPUSCULAR HEMOGLOBIN 29 pg (25-34); MEAN CORPUSCULAR HGB CONC 34 g/dL (32-36); MEAN CORPUSCULAR VOLUME 86 fL (80-99); MEAN PLATELET VOLUME 9.2 fL (9.0-12.2); MONOCYTES # (AUTO) 0.4 10^3/uL (0.0-1.0); MONOCYTES % (AUTO) 5 % (0-12); NEUTROPHILS # (AUTO) 4.6 10^3/uL (1.8-7.8); NEUTROPHILS % (AUTO) 67 % (42-75); PLATELET COUNT 358 10^3/uL (130-400); WHITE BLOOD COUNT 6.8 10^3/uL (4.3-11.0)
--- NOTE | 2023-03-11 16:33 | ED General ---
General Chief Complaint: Abdominal/GI Problems Stated Complaint: GEN WEAKNESS; VOMITING Source of Information: Patient, Spouse History of Present Illness Date Seen by Provider: Mar 11, 2023 Time Seen by Provider: 16:19 Initial Comments 42-year-old male presenting with complaints of not feeling well. He had an episode of vomiting and abdominal pain yesterday after taking his metformin on an empty stomach. He has not been checking his sugars as he states that he did not have the right equipment. He reports that the clinic has not ordered him test strips and supplies but had ordered the wrong thing. He states he does not have a primary care provider and has not established with anybody at the clinic despite being here for the same problem multiple times in the emergency department been told each time that he needs to follow-up and establish with a primary care doctor and have them manage his sugars. Timing/Duration: 1 Day Severity: Moderate Modifying Factors: worse with Medication (He felt like the medication was making him feel sick.) Associated Systoms: No Chest Pain, No Cough, No Diaphoresis, No Fever/Chills, No Headaches, No Loss of Appetite; Malaise, Nausea/Vomiting (X1 yesterday); No Rash, No Seizure, No Shortness of Air, No Syncope; Weakness Allergies and Home Medications Allergies Coded Allergies: haloperidol (Verified Allergy, Mild, 10/10/21) Patient Home Medication List Home Medication List Reviewed: Yes Ondansetron (Ondansetron Odt) 4 Mg Tab.rapdis, 4 MG PO TID PRN for NAUSEA-1ST LINE Prescribed by: Joanne gibson on 11/18/22 7708 Review of Systems Review of Systems Constitutional: No chills, No fever; malaise EENTM: no symptoms reported Respiratory: no symptoms reported Cardiovascular: no symptoms reported Gastrointestinal: see HPI Genitourinary: no symptoms reported Musculoskeletal: no symptoms reported Skin: no symptoms reported Psychiatric/Neurological: No Symptoms Reported Past Xegzsje-[id number]-[id number] Hx Immunizations Up To Date First/Initial COVID19 Vaccinat: unknown date Second COVID19 Vaccination Alireza: unknown date Past Medical History Surgery/Hospitalization HX: Diabetes mellitus type 2, Depression, noncompliance Surgeries: Yes (nose surgery) Physical Exam Vital Signs Vital Signs - First Documented 03/11/23 16:29 Temp 35.6 Pulse 98 Resp 16 B/P (MAP) 125/89 (101) Pulse Ox 99 Capillary Refill : Height, Weight, BMI Height: '" Weight: lbs. oz. kg; 30.00 BMI Method: General Appearance: WD/WN HEENT: PERRL/EOMI, Pharynx Normal, Moist Mucous Membranes Neck: Full Range of Motion, Normal Inspection, Non Tender, Supple Respiratory: Chest Non Tender, Lungs Clear, Normal Breath Sounds Cardiovascular: Regular Rate, Rhythm, Normal Peripheral Pulses Gastrointestinal: Normal Bowel Sounds, No Pulsatile Mass, Non Tender, Soft Extremity: Normal Capillary Refill, Normal Inspection, No Pedal Edema Neurologic/Psychiatric: Alert, Oriented x3, rig superintendent II-XII Norm as Tested Skin: Normal Color, Warm/Dry Progress/Results/Core Measures Suspected Sepsis SIRS Temperature: Pulse: Respiratory Rate: Laboratory Tests 03/11/23 16:24: White Blood Count 6.8 Blood Pressure / Mean: Laboratory Tests 03/11/23 16:24: Creatinine 0.92, Platelet Count 358, Total Bilirubin 0.7 Results/Orders Lab Results Laboratory Tests Test 03/11/23 16:22 03/11/23 16:24 03/11/23 16:50 03/11/23 17:10 Range/Units Glucometer 351 H 332 H 70-110 MG/DL White Blood Count 6.8 4.3-11.0 10^3/uL Red Blood Count 5.89 H 4.30-5.52 10^6/uL Hemoglobin 17.1 13.3-17.7 g/dL Hematocrit 51 40-54 % Mean Corpuscular Volume 86 80-99 fL Mean Corpuscular Hemoglobin 29 25-34 pg Mean Corpuscular Hemoglobin Concent 34 32-36 g/dL Red Cell Distribution Width 13.1 10.0-14.5 % Platelet Count 358 130-400 10^3/uL Mean Platelet Volume 9.2 9.0-12.2 fL Immature Granulocyte % (Auto) 0 % Neutrophils (%) (Auto) 67 42-75 % Lymphocytes (%) (Auto) 27 12-44 % Monocytes (%) (Auto) 5 0-12 % Eosinophils (%) (Auto) 0 0-10 % Basophils (%) (Auto) 0 0-10 % Neutrophils # (Auto) 4.6 1.8-7.8 10^3/uL Lymphocytes # (Auto) 1.9 1.0-4.0 10^3/uL Monocytes # (Auto) 0.4 0.0-1.0 10^3/uL Eosinophils # (Auto) 0.0 0.0-0.3 10^3/uL Basophils # (Auto) 0.0 0.0-0.1 10^3/uL Immature Granulocyte # (Auto) 0.0 0.0-0.1 10^3/uL Sodium Level 130 L 135-145 MMOL/L Potassium Level 4.1 3.6-5.0 MMOL/L Chloride Level 94 L 98-107 MMOL/L Carbon Dioxide Level 12 L 21-32 MMOL/L Anion Gap 24 H 5-14 MMOL/L Blood Urea Nitrogen 10 7-18 MG/DL Creatinine 0.92 0.60-1.30 MG/DL Estimat Glomerular Filtration Rate 105 BUN/Creatinine Ratio 11 Glucose Level 410 *H 70-105 MG/DL Calcium Level 9.4 8.5-10.1 MG/DL Corrected Calcium 9.3 8.5-10.1 MG/DL Total Bilirubin 0.7 0.1-1.0 MG/DL Aspartate Amino Transf (AST/SGOT) 7 5-34 U/L Alanine Aminotransferase (ALT/SGPT) 8 0-55 U/L Alkaline Phosphatase 106 40-136 U/L Total Protein 7.2 6.4-8.2 GM/DL Albumin 4.1 3.2-4.5 GM/DL Lipase 53 8-78 U/L Serum Alcohol < 10 <10 MG/DL Urine Color YELLOW Urine Clarity CLEAR Urine pH 6.0 5-9 Urine Specific [place] 1.025 H 1.016-1.022 Urine Protein 1+ H NEGATIVE Urine Glucose (UA) 2+ H NEGATIVE Urine Ketones 3+ H NEGATIVE Urine Nitrite NEGATIVE NEGATIVE Urine Bilirubin 1+ H NEGATIVE Urine Urobilinogen 0.2 < = 1.0 MG/DL Urine Leukocyte Esterase NEGATIVE NEGATIVE Urine RBC (Auto) TRACE-I H NEGATIVE Urine RBC 0-2 /HPF Urine WBC 2-5 /HPF Urine Squamous Epithelial Cells 2-5 /HPF Urine Crystals NONE /LPF Urine Bacteria TRACE /HPF Urine Casts PRESENT /LPF Urine Hyaline Casts 2-5 H /LPF Urine Coarse Granular Casts 0-2 H /LPF Urine Mucus LARGE H /LPF Urine Culture Indicated NO Urine Opiates Screen NEGATIVE NEGATIVE Urine Oxycodone Screen NEGATIVE NEGATIVE Urine Methadone Screen NEGATIVE NEGATIVE Urine Propoxyphene Screen NEGATIVE NEGATIVE Urine Barbiturates Screen NEGATIVE NEGATIVE Ur Tricyclic Antidepressants Screen NEGATIVE NEGATIVE Urine Phencyclidine Screen NEGATIVE NEGATIVE Urine Amphetamines Screen NEGATIVE NEGATIVE Urine Methamphetamines Screen NEGATIVE NEGATIVE Urine Benzodiazepines Screen NEGATIVE NEGATIVE Urine Cocaine Screen NEGATIVE NEGATIVE Urine Cannabinoids Screen NEGATIVE NEGATIVE Test 03/11/23 17:34 Range/Units Glucometer 266 H 70-110 MG/DL My Orders Orders - ARETHA COTTON MD Comprehensive Metabolic Panel (03/11/23 16:18) Lipase (03/11/23 16:18) Ua Culture If Indicated (03/11/23 16:18) Ed Iv/Invasive Line Start (03/11/23 16:18) Cbc With Automated Diff (03/11/23 16:18) Drug Screen Stat (Urine) (03/11/23 16:18) Alcohol (03/11/23 16:18) Ns Iv 1000 Ml (Sodium Chloride 0.9%) (03/11/23 16:24) Ondansetron Injection (Zofran Injectio (03/11/23 16:24) Pantoprazole Injection (Protonix Injecti (03/11/23 16:24) Insulin (Regular) Per Unit (Insulin (Reg (03/11/23 16:24) Ns Iv 1000 Ml (Sodium Chloride 0.9%) (03/11/23 17:07) Accucheck Stat ONCE (03/11/23 17:07) Insulin (Regular) Per Unit (Insulin (Reg (03/11/23 17:13) Vital Signs/I&O 03/11/23 16:29 Temp 35.6 Pulse 98 Resp 16 B/P (MAP) 125/89 (101) Pulse Ox 99 Capillary Refill : Progress Note #1: Progress Note Potential diagnosis of noncompliance, DKA, hyperosmolar hyper glycemic, hyperglycemia. Accu-Chek was 351. Establish peripheral IV access and send labs for complete blood count, comprehensive metabolic profile, lipase, urinalysis, alcohol, urine drug screen. Administer normal saline 1 L IV fluid bolus for his hydration, 10 units of regular insulin IV to help with his hyperglycemia. Zofran 4 mg IV for nausea and vomiting. Progress Note #2: Progress Note Complete blood count does not show any acute significant abnormality. His comprehensive metabolic profile shows the elevated glucose of 410. Along with that he had a mild hypo natremia to 130 and his CO2 was slightly low at 12 with an anion gap of 24. On his urinalysis does show dehydration with specific gravity 1.025 and 3+ ketones with 2+ glucose. He did not have signs of infection. We will repeat the liter bolus of saline and recheck his Accu-Chek to see where his sugar is now after the fluids and insulin. Progress Note #3: Time: 17:15 Progress Note Recheck of his Accu-Chek shows he is down to 332. He is getting a second liter of normal saline as well as another 10 units of regular insulin. He is also drinking fluids here. After the other bag of fluid and insulin have infused will recheck his Accu-Chek prior to discharge to home. Again stressed importance of getting in with the [facility] clinic so that he can establish a follow- up with a provider to help manage his diabetes. 1732 recheck of accucheck is now down to 266 prior to discharge. Given information of diabetic diets and how to manage high blood sugars. Advised to take his metformin tonight as scheduled. Stressed importance of follow up and establishing care with the clinic to manage his diabetes. Departure Impression Primary Impression: Hyperglycemia due to diabetes mellitus Additional Impression: Dehydration Disposition: 01 HOME, SELF-CARE Condition: Stable Departure-Patient Inst. Decision time for Depature: 17:15 Referrals: NO,LOCAL PHYSICIAN (PCP) Primary Care Physician [facility] Patient Instructions: High Blood Sugar, Adult ED, How to Prevent High Blood Sugar Emergencies in Diabetes, How to Keep Track of Your Blood Sugar, Diabetes and diet, Diabetic Meal Planning , Dehydration, Adult ED Add. Discharge Instructions: You have to follow-up with the clinic and get established so that they can help to manage your blood sugars. Watch your diet and limit your carbohydrate intake. Try to balance your diet so that you are getting plenty of protein along with carbohydrates and fruits and vegetables. All discharge instructions reviewed with patient and/or family. Voiced understanding. ARETHA COTTON MD Mar 11, 2023 16:33
[2023-03-11 16:48] LABS: BILIRUBIN,TOTAL 0.7 MG/DL (0.1-1.0); BUN/CREATININE RATIO 11; CALCIUM 9.4 MG/DL (8.5-10.1); CARBON DIOXIDE 12 MMOL/L (21-32); CHLORIDE 94 MMOL/L (98-107); CREATININE SERUM 0.92 MG/DL (0.60-1.30); GFR ESTIMATED 105; POTASSIUM 4.1 MMOL/L (3.6-5.0); SODIUM 130 MMOL/L (135-145)
[2023-03-11 16:49] LABS: ALANINE AMINOTRANSFERASE 8 U/L (0-55); ALBUMIN 4.1 GM/DL (3.2-4.5); ALKALINE PHOSPHATASE 106 U/L (40-136); LIPASE 53 U/L (8-78); TOTAL PROTEIN 7.2 GM/DL (6.4-8.2)
[2023-03-11 16:50] LABS: GLUCOSE 410 MG/DL (70-105)
[2023-03-11 16:56] LABS: CLARITY,URINE CLEAR; COLOR,URINE YELLOW; GLUCOSE, URINE (UA) 2+ (NEGATIVE); KETONES,URINE 3+ (NEGATIVE); LEUKOCYTE ESTERASE ,URINE NEGATIVE (NEGATIVE); NITRITE,URINE NEGATIVE (NEGATIVE); PROTEIN,URINE 1+ (NEGATIVE)
[2023-03-11 17:06] LABS: BACTERIA,URINE TRACE /HPF; RBC,URINE 0-2 /HPF
[2023-03-11 17:07] LABS: AMPHETAMINE SCREEN, URINE NEGATIVE (NEGATIVE); BARBITURATE SCREEN URINE NEGATIVE (NEGATIVE); BENZODIAZEPINES SCREEN URINE NEGATIVE (NEGATIVE); CANNABINOID SCREEN, URINE NEGATIVE (NEGATIVE); COCAINE SCREEN URINE NEGATIVE (NEGATIVE); METHADONE STAT NEGATIVE (NEGATIVE); OPIATE SCREEN URINE NEGATIVE (NEGATIVE); OXYCODONE STAT NEGATIVE (NEGATIVE); PROPOXYPHENE STAT NEGATIVE (NEGATIVE); TRICYCLIC ANTIDEPRESSANTS SCRE NEGATIVE (NEGATIVE)
[2023-03-11 17:10] LABS: BILIRUBIN,URINE 1+ (NEGATIVE)
[2023-03-11 17:40] VITALS: BP 123/76
== END 2023-03-11 17:41 | disposition home or self-care (01) ==
LOC: EDUNIT# 16:15 → ER FS 16:17
DX: E11.65 Type 2 diabetes mellitus with hyperglycemia (principal); E86.0 Dehydration; R11.2 Nausea with vomiting, unspecified; E87.1 Hypo-osmolality and hyponatremia
CPT/HCPCS: 36415; 80053; 80306; 81000; 82947; 83690; 85025; 99284; G0480; 80320